=== PATIENT | female | born 1995 ===

== ENCOUNTER → 2020-05-08 | Outpatient (CLI) | payer OTHER ==
[~2020-05-08] MED LIST: FERROUS SU325 MG/TAB PO; IBU600 MG PO; PRENATAL TABLET PO
== END ==
LOC: ZCOL.LAB 12:00
DX: Z20.822 Contact with and (suspected) exposure to COVID-19 (principal)

== ENCOUNTER 2020-05-10 04:45 | Inpatient (IN) | payer OTHER ==
[2020-05-10] VITALS (21 sets, daily range): BP systolic 102–136; BP diastolic 51–89; PULSE 61–98; TEMP 97.9–98.2
[~2020-05-10] VITALS: Ht 167.6 cm; Wt 73.6 kg
--- NOTE | 2020-05-10 04:50 | NUR ---
G3L2 at 39 weeks and 4 days arrives to hospital with complaint of contractions every 5 minutes. Pt states contractions started around 0400. Denies LOF or vaginal bleeding. Reports good movement. Denies current headache, blurry vision, or RUQ pain. Pt oriented to room, call light within reach, bed in low and locked position. Changed into clean gown. US and toco explained and applied. Admission assessment started. Vital signs obtained. SVE 6-7/100/-2, bulging bag of water, head felt on exam.
--- NOTE | 2020-05-10 05:12 | NUR ---
18G IV started in left forearm with 1 attempt. Admission labs obtained off IV start. Lactated Ringers infusing to gravity. Pen G started.
[2020-05-10 05:23] LABS: BASO % 0.3 % (0.0-2.0); EOS # 0.2 (0.0-0.7); EOS % 1.6 % (0-4.0); GRAN # 7.4 (1.4-6.5); HEMOGLOBIN 12.2 g/dl (12.5-16.0); LYMPH # 2.5 (1.2-3.4); LYMPH % 22.4 % (20.0-51.0); MEAN CELL VOLUME 82 fl (80.0-100.0); MEAN CORPUSCULAR HEMOGLOBIN 27 pg (27.0-31.0); MEAN CORPUSCULAR HGB CONC 33 g/dl (33.0-37.0); MEAN PLATELET VOLUME 11.7 fl (7.4-10.4); MONO % 9.1 % (1.7-9.3); PLATELET COUNT 208 K/mm3 (130-400); RED BLOOD COUNT 4.49 M/mm3 (4.10-5.30); REDCELL DISTRIBUTION WIDTH-CV 14.4 % (11.5-14.5)
[2020-05-10 05:24] LABS: HEMATOCRIT 36.8 % (37.0-47.0)
[2020-05-10] MEDS ORDERED: PRENATAL TABLET PO (05:26)
[2020-05-10] MEDS ORDERED: FERROUS SU325 MG/TAB PO (05:27)
--- NOTE | 2020-05-10 05:38 | NUR ---
0503 - J Carlos Baez CRNA notified to come to bedside for epidural placement. 0530 - NINFA Moy at bedside. Pt positioned to sitting on edge of bed. Epidural procedure, risks, and benefits explained to patient, verbalized understanding. 0538 - Single shot by NINFA Moy at this time. Pt denies any adverse reactions.
--- NOTE | 2020-05-10 05:58 | NUR ---
Peguero catheter placed to dependent drainage at this time. Clear, yellow urine returned. Secured to leg with statlock. Pt tolerated well. Updated on plan of care.
--- NOTE | 2020-05-10 07:10 | NUR ---
BY DR SAMSON. VIABLE FEMALE TO MOTHERS CHEST. IN CARE OF BEAR SAMUELS. FOB CUT CORD. PLACENTA SPON DELIVERED BY DR SAMSON AT 0715. PERINEUM INTACT. ICE PACK PROVIDED. JULIANA CARE PROVIDED. WARM BLANKET PROVIDED RECOVERY STARTED AT 0730
[2020-05-11 04:00] VITALS: BP 108/61; PULSE 58; TEMP 98.1
[2020-05-11 07:40] VITALS: BP 123/81; PULSE 67; TEMP 97.3
[2020-05-11 17:50] VITALS: BP 128/81; PULSE 68; TEMP 98.1
--- NOTE | 2020-05-11 18:15 | NUR ---
Report recieved. Changing 's diaper. Updated whiteboard and POC reviewed.
[2020-05-11 19:40] VITALS: BP 128/83; PULSE 69; TEMP 98
[2020-05-12 08:00] VITALS: BP 124/82; PULSE 63; TEMP 97.9
[2020-05-12] MEDS ORDERED: IBU600 MG PO (09:24)
== END 2020-05-12 10:25 | disposition home or self-care (01) | DRG 807 ==
LOC: LDRO 04:45 → LDR 05:04 → OB 09:47
PROVIDERS: ADMIT Obstetrics & Gynecology
PROC: 10E0XZZ Delivery of Products of Conception, External Approach (ICD-10-PCS; principal; 2020-05-10)
PROC: 10907ZC Drainage of Amniotic Fluid, Therapeutic from Products of Conception, Via Natural or Artificial Opening (ICD-10-PCS; 2020-05-10)
DX: O80 Encounter for full-term uncomplicated delivery (principal); Z37.0 Single live birth; Z3A.39 39 weeks gestation of pregnancy
CPT/HCPCS: J2540; J2590; J2795; J7120